=== PATIENT | male | born 2000 | race Caucasian/White ===

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

== ENCOUNTER → 2020-12-24 10:17 | Outpatient (CLI) | payer OTHER, SELFPAY ==
[2020-12-27 08:06] LABS: Calprotectin, Stool 2122 ug/g (0-120)
== END ==
PROVIDERS: PCP Family Medicine; Referring Provider Pediatrics; Visit Provider Pediatrics
DX: K50.819 Crohn's disease of both small and large intestine with unspecified complications (principal); R19.5 Other fecal abnormalities; D84.9 Immunodeficiency, unspecified; D50.9 Iron deficiency anemia, unspecified
CPT/HCPCS: 82274; 83993; 87493; 87506

== ENCOUNTER → 2023-06-13 | Outpatient (CLI) | payer OTHER, SELFPAY ==
[2023-06-13 17:00] LABS: Absolute Lymphocyte Count 1.89 X10^3/uL (0.83-4.51); Absolute Neutrophil Count 6.6 X10^3/uL (2.0-7.7); Basophil# 0.03 X10^3/uL; Basophil% 0.3 % (0-1); Eosinophils% 1.1 % (0-5); Hematocrit 46.6 % (40-54); Hemoglobin 14.2 g/dL (13.0-16.5); Lymphocyte # 1.89 X10^3/ul (0.83-4.51); Lymphocyte % 20.7 % (19-41); Mean Corp Hgb Conc 30.5 g/dL (32-36); Mean Corpuscular Hgb 24.3 pg (27.0-32.0); Mean Corpuscular Volume 79.8 fL (80-94); Mean Platelet Vol. 10.9 fl (6.2-12.0); Monocyte% 5.5 % (0-10); NRBC Flagged by Analyzer 0 % (0-5); Neutrophil # 6.57 X10^3/uL (2.7-7.7); Neutrophil % 72.2 % (47-70); Platelet Count 292 K/mm3 (150-450); RBC Distribution Width CV 16.9 % (11.6-14.6); RBC Distribution Width SD 48.3 fl (35.1-43.9); Red Blood Count 5.84 M/mm3 (4.6-6.2); White Blood Count 9.1 K/mm3 (4.4-11.0)
[2023-06-13 17:07] LABS: Erythrocyte Sedimentation Rate 36 mm/hr (0-20)
[2023-06-13 17:31] LABS: ALB/GLOB Ratio 0.9 RATIO (0.9-2.4); AST(SGOT) 15 U/L (15-37); Alanine Aminotransfer ALT/SGPT 18 U/L (16-61); Albumin, Serum 4.1 g/dL (3.2-5.0); Alkaline Phosphatase 104 U/L (45-117); Amylase 63 U/L (25-115); Anion Gap 5 (5-15); BUN 17 mg/dL (7-18); BUN/Creat Ratio 15.2 RATIO (10-20); CRP 6.67 mg/L (0.0-3.0); Calcium,Total 8.9 mg/dL (8.5-10.1); Chloride 106 mmol/L (98-107); Creatinine, Serum 1.12 mg/dL (0.70-1.30); EST Glomerular Filtration Rate 86 mL/min (>60); Est Glom Filt Rate - Afr Amer 104 mL/min (>60); Globulin 4.7 g/dL (2.2-4.2); Glucose 103 mg/dL (74-106); LDH 172 U/L (87-241); Lipase 32 U/L (13-75); Protein, Total 8.8 g/dL (6.4-8.2); Sodium Level 139 mmol/L (136-145)
--- OUTSIDE RECORDS SUMMARY | 2023-06-13 17:39 | XMS RPT_ITS | CCD ---
Author Name Unknown Address [address] [place] [address] Organization [facility] Care Team Providers Care Finger Buff Sewer Name Role Phone Corrine Patel MD Primary Care Provider [phone] ISHAAN HAYES Attending Unavailable ISHAAN HAYES Referring Unavailable CORRINE PATEL Primary Care Unavailable ISHAAN HAYES Referring Unavailable ISHAAN HAYES Attending Unavailable CORRINE PATEL Primary Care Unavailable ISHAAN HAYES Attending Unavailable ISHAAN HAYES Referring Unavailable CORRINE PATEL Primary Care Unavailable CORRINE PATEL Referring Unavailable ISHAAN HAYES Attending Unavailable CORRINE PATEL Primary Care Unavailable ISHAAN HAYES Attending Unavailable CORRINE PATEL Primary Care Unavailable Medications Current Medications Medication Drug Class(es) Dates Sig (Normalized) Sig (Original) mesalamine 66.7 mg/ml enema (3 sources) Aminosalicylate Start: 07-13-2021 take 60 mL rectal route once daily at bedtime mesalamine (ROWASA) [address] 60 mL (4 g) rectally nightly at bedtime 30 Each 2 07/13/2021 Active triamcinolone acetonide 0.001 mg/mg oral paste (3 sources) Corticosteroid Start: 02-08-2022 triamcinolone acetonide (KENALOG) 0.1 % dental paste Apply to sores once or up to three times a day after meals 5 g 3 02/08/2022 Active Problems Active Problems Problem Classification Problem Date Documented Date Episodic/Chronic Immunity disorders (6 sources) Immunosuppression; Translations: [Immunodeficiency, unspecified] Onset: 09-14-2016 Chronic Noninfectious gastroenteritis (3 sources) Inflammatory bowel disease; Translations: [Noninfective gastroenteritis and colitis, unspecified] Episodic Regional enteritis and ulcerative colitis (18 sources) Crohn's disease of small AND large intestines; Translations: [Crohn's disease of both small and large intestine with unspecified complications] Onset: 04-11-2016 Resolved: 05-03-2021 Chronic Past or Other Problems Problem Classification Problem Date Documented Da te Episodic/Chronic Anal and rectal conditions (3 sources) Perianal abscess; Translations: [Anal abscess] Onset: 11-27-2018 Resolved: 05-03-2021 05-03-2021 Episodic Gastrointestinal hemorrhage (3 sources) Blood-tinged feces; Translations: [Melena] Onset: 11-27-2018 Resolved: 05-03-2021 05-03-2021 Episodic Other gastrointestinal disorders (3 sources) Diarrhea; Translations: [Diarrhea, unspecified] Onset: 03-24-2016 Resolved: 06-07-2016 06-07-2016 Episodic Results Test Name Value Interpretation Reference Range Facil ity Encounters Encounter Date Encounter Type Care Provider Facility Start: 12-27-2022 End: 12-28-2022 [facility] Start: 08-16-2022 End: 08-17-2022 ambulatory [facility] Start: 08-16-2022 End: 08-16-2022 Subsequent hospital visit by physician Ishaan Hayes MD Work Phone: [facility] - [place] Procedures Date Procedure Procedure Detail Performing Clinician Start: 08-16-2022 Basic metabolic 1999 panel - Serum or Plasma Ishaan Hayes MD Work Phone: Start: 08-16-2022 C-reactive protein Ori moe Hayes MD Work Phone: Start: 08-16-2022 Complete blood count without differential Ishaan Hayes MD Work Phone: Start: 08-16-2022 Erythrocyte sediment ation rate Ishaan Hayes MD Work Phone: Start: 08-16-2022 Hepatic function 200 0 panel - Serum or Plasma Ishaan Hayes MD Work Phone: Start: 04-25-2022 Basic metabolic 2000 panel - Serum or Plasma Ishaan Hayes MD Work Phone: Start: 04-25-2022 C-reactive protein Ori moe Hayes MD Work Phone: Start: 04-25-2022 Complete blood count without differential Ishaan Hayes MD Work Phone: Start: 04-25-2022 Erythrocyte sediment ation rate Ishaan Hayes MD Work Phone: Start: 04-25-2022 Hepatic function 200 0 panel - Serum or Plasma Ishaan Hayes MD Work Phone: Start: 12-31-2021 Basic metabolic pane l calcium total Ishaan Hayes MD Work Phone: Start: 12-31-2021 Hepatic function panel Ishaan Hayes MD Work Phone: Plan of Treatment Date Care Activity Detail Author Start: 02-08-2022 End: 02-08-2022 Patient encounter procedure 02/08/2022 Office Visit [place]astroenterology [place] [address] [facility] [place] Start: 02-03-2022 [facility] Start[facility] MenB (1 of 2 - MenB 2-Dose Series Bexsero) MenB (1 of 2 - MenB 2-Dose Series Bexsero) [facility] Start: 2015 MenB (1 of 2 - MenB 2-Dose Series) MenB (1 of 2 - MenB 2-Dose Series) [facility] Start: 12-29-2010 HPV (1 - Male 2-dose series) HPV (1 - Male 2-dose series) [facility] Start: 12-29-2006 Tetanus Diphtheria and Pertussis Vaccines (1 - Tdap) Tetanus Diphtheria and Pertussis Vaccines (1 - Tdap) [facility] Start: 12-29-2000 MMR (1 of 1 - Standard series) MMR (1 of 1 - Standard series) [facility] Start: 12-29-2000 Varicella (1 of 2 - 2-dose childhood series) Varicella (1 of 2 - 2-dose childhood series) [facility] Start: 07-01-2000 COVID-19 (#1) COVID-19 (#1) [facility] Start: 1999 Hepatitis B (1 of 3 - 3-dose series) Hepatitis B (1 of 3 - 3-dose series) [facility] End: 12-31-2021 Hepatitis Acute Panel [facility] Work Phone: Immunizations Immunization Date Immunization Notes Care Provider Fa cility 03-26-2019 influenza, injectabl e, quadrivalent, preservative free Ishaan Hayes MD Work Phone: [facility] 06-07-2016 influenza, injectabl e, quadrivalent, preservative free Ishaan Hayes MD Work Phone: [facility] Payers Date Payer Category Payer Unknown [employer] [facility] M[facility] SUPER[employer] PPO [id number] 2021-Present [address] [place] [address] [id number] 1999 Unknown [id number] 1999 Unknown [id number] 1999 Unknown [id number] 1999 Unknown [id number] 1999 Unknown [id number] Unknown [id number] Social History Date Type Detail Facility Start: 02-15-2019 End: 02-08-2022 Tobacco smoking status NHIS Never smoked tobacco [facility] Work Phone: Start: 02-15-2019 End: 02-08-2022 Tobacco use and exposure Smokeless tobacco non-user [facility] Start: 05-10-2021 End: 02-08-2022 Alcohol intake Current non-drinker of alcohol (finding) [facility] Start: 11-01-2017 End: 02-08-2022 History SDOH Alcohol Comment Pt denies use [facility] Start: 1999 Sex Assigned At Not on file A [facility] Start: 12-21-2021 End: 12-31-2021 Exposure to SARS-CoV-2 (event) Not sure [facility] Start: 02-08-2022 History of Social function [facility] Start: 02-08-2022 Tobacco use panel [facility] Evaluation note Note Date & Type Note Facility documented in this encounter [facility] Evaluation note Note Date & Type Note Facility documented in this encounter [facility] Evaluation note Note Date & Type Note Facility documented in this encounter [facility] Reason for referral (narrative) Referral (Routine) - Open Note Date & Type Note Facility Referral ID Status Reason Start Date Expiration Date Visits Re quested Visits Authorized [id number] Open 04/22/2022 04/22/2023 1 1 [facility] Reason for visit Narrative Referral (Routine) - Open Note Date & Type Note Facility Referral ID Status Reason Start Date Expiration Date Visits Re quested Visits Authorized [id number] Open 04/22/2022 04/22/2023 1 1 [facility] Reason for visit Narrative Referral (Routine) - Open Note Date & Type Note Facility Referral ID Status Reason Start Date Expiration Date Visits Re quested Visits Authorized [id number] Open 07/22/2022 07/22/2023 1 1 [facility] Summary Purpose Family History No Family History Records Found Advance Directives No Advanced Directives Records Found Additional Source Comments Care Teams (unrecognized sec tion and content) Finger Buff Sewer Relationship Specialty Start Date End Date Corrine Patel MD [address] [place] [address] PCP - General Family Medicine 03/15/16 Finger Buff Sewer Relationship Specialty Start Date End Date Corrine Patel MD [address] [place] [address] PCP - General Family Medicine 03/15/16 (unrecognized sect ion and content) No Status Records Found INFORMATION SOURCE (unrecogn ized section and content) FOR RECORDS PERTAINING TO PATIENTS WHO ARE OR HAVE BEEN ENROLLED IN A CHEMICAL DEPENDENCY/SUBSTANCEABUSE PROGRAM, SOME INFORMATION MAY BE OMITTED. This clinical summary was aggregated from multiple sources. Caution should be exercised in using it in the provision of clinical care. This summary normalizes information from multiple sources, and as a consequence, information in this document may materially change the coding, format and clinical context of patient data. In addition, data may be omitted in some cases. CLINICAL DECISIONS SHOULD BE BASED ON THE PRIMARY CLINICAL RECORDS. [employer] provides no warranty or guarantee of the accuracy or completeness of information in this document.
[2023-06-17 16:09] LABS: Anti-Mitochondrial AB <20.0 Units (0.0-20.0); Clam <0.10 kU/L (Class 0); Codfish <0.10 kU/L (Class 0); Corn <0.10 kU/L (Class 0); Egg, White <0.10 kU/L (Class 0); Milk (Cow) <0.10 kU/L (Class 0); Peanut <0.10 kU/L (Class 0); SCALLOP <0.10 kU/L (Class 0); SESAME SEED <0.10 kU/L (Class 0); Shrimp <0.10 kU/L (Class 0); Soybean <0.10 kU/L (Class 0); Walnut, (Food) <0.10 kU/L (Class 0); Wheat <0.10 kU/L (Class 0)
== END | disposition home or self-care (01) ==
PROVIDERS: PCP Family Medicine; Visit Provider Internal Medicine Gastroenterology
DX: K50.90 Crohn's disease, unspecified, without complications (principal)
CPT/HCPCS: 36415; 80053; 82150; 82164; 82784; 82785; 83516; 83615; 83690; 84165; 85025; 85652; 86003; 86140; 86255; 86256; 86334

== ENCOUNTER → 2023-06-16 | Outpatient (CLI) | payer OTHER, SELFPAY ==
--- OUTSIDE RECORDS SUMMARY | 2023-06-16 16:42 | XMS RPT_ITS | CCD ---
Author Name Unknown Address [address] [place] [address] Organization [facility] Care Team Providers Care Furnace Fitter Name Role Phone Corrine Patel MD Primary Care Provider [phone] ISHAAN HAYES Attending Unavailable ISHAAN HAYES Referring [...] Provider Facility Start: 12-27-2022 End: 12-28-2022 [facility] Start: 08-16-2022 End: 08-17-2022 ambulatory [facility] Start: 08-16-2022 End: 08-16-2022 Subsequent hospital visit by physician Ishaan Hayes MD Work Phone: [facility] - [place] Procedures Date Procedure Procedure Detail Performing Clinician [...] 02/08/2022 Office Visit Gastroenterology [place] [address] [facility] - [place] Start: 02-03-2022 [facility] Start: [facility] MenB (1 of 2 - MenB 2-Dose Series Bexsero) MenB (1 of 2 - MenB 2-Dose Series Bexsero) [facility] Start: 2015 MenB (1 of 2 - MenB 2-Dose Series) MenB (1 of 2 - MenB 2-Dose Series) [facility] Start: 12-29-2010 HPV (1 - Male 2-dose series) HPV (1 - Male 2-dose series) [facility] Start: 12-29-2006 Tetanus Diphtheria and Pertussis Vaccines (1 - Tdap) Tetanus Diphtheria and Pertussis Vaccines (1 - Tdap) [facility] Start: 12-29-2000 MMR (1 of 1 - Standard series) MMR (1 of 1 - Standard series) [facility] Start: 12-29-2000 Varicella (1 of 2 - 2-dose childhood series) Varicella (1 of 2 - 2-dose childhood series) [facility] Start: 07-01-2000 COVID-19 (#1) COVID-19 (#1) [facility] Start: 1999 Hepatitis B (1 of 3 - 3-dose series) Hepatitis B (1 of 3 - 3-dose series) [facility] End: 12-31-2021 Hepatitis Acute Panel [facility] Work Phone: Immunizations Immunization Date Immunization Notes Care Provider Fa cility 03-26-2019 influenza, injectabl e, quadrivalent, preservative free Ishaan Hayes MD Work Phone: [facility] 06-07-2016 influenza, injectabl e, quadrivalent, preservative free Ishaan Hayes MD Work Phone: [facility] Payers Date Payer Category Payer Unknown [employer] [facility] M[employer] SU[employer]MED PPO [id number] 2021-Present [address] [place] [address] [id number] 1999 Unknown [id number] 1999 Unknown [id number] 1999 Unknown [id number] 1999 Unknown [id number] 1999 Unknown [id number] Unknown [id number] Social History Date Type Detail Facility Start: 02-15-2019 End: 02-08-2022 Tobacco smoking status NHIS Never smoked tobacco [facility] Work Phone: Start: 02-15-2019 End: 02-08-2022 Tobacco use and exposure Smokeless tobacco non-user [facility] Start: 05-10-2021 End: 02-08-2022 Alcohol intake Current non-drinker of alcohol (finding) [facility] Start: 11-01-2017 End: 02-08-2022 History SDOH Alcohol Comment Pt denies use [facility] Start: 1999 Sex Assigned At Not on file A [facility] Start: 12-21-2021 End: 12-31-2021 Exposure to SARS-CoV-2 (event) Not sure [facility] Start: 02-08-2022 History of Social function [facility] Start: 02-08-2022 Tobacco use panel [facility] Evaluation note Note Date & Type Note Facility documented in this encounter [facility] Evaluation note Note Date & Type Note Facility documented in this encounter [facility] Evaluation note Note Date & Type Note Facility documented in this encounter [facility] Reason for referral (narrative) Referral (Routine) - Open Note Date & Type Note Facility Referral ID Status Reason Start Date Expiration Date Visits Re quested Visits Authorized [id number] Open 04/22/2022 04/22/2023 1 1 [facility] Reason for visit Narrative Referral (Routine) - Open Note Date & Type Note Facility Referral ID Status Reason Start Date Expiration Date Visits Re quested Visits Authorized [id number] Open 04/22/2022 04/22/2023 1 1 [facility] Reason for visit Narrative Referral (Routine) - Open Note Date & Type Note Facility Referral ID Status Reason Start Date Expiration Date Visits Re quested Visits Authorized [id number] Open 07/22/2022 07/22/2023 1 1 [facility] Summary Purpose Family History No Family History Records Found Advance Directives No Advanced Directives Records Found Additional Source Comments Care Teams (unrecognized sec tion and content) Furnace Fitter Relationship Specialty Start Date End Date Corrine Patel MD [address] [place] [address] PCP - General Family Medicine 03/15/16 Furnace Fitter Relationship Specialty Start Date End Date Corrine Patel MD [address] [place] [address] PCP - General Family Medicine 03/15/16 (unrecognized [...] BE BASED ON THE PRIMARY CLINICAL RECORDS. [employer] provides no warranty or guarantee of the accuracy or completeness of information in this document.
[2023-06-21 01:07] LABS: Calprotectin, Stool 622 ug/g (0-120); Fats, Neutral Normal (.); Fats, Total Increased (.)
[2023-06-21 14:08] LABS: Pancreatic Elastase, Fecal 299 (>200)
== END | disposition home or self-care (01) ==
PROVIDERS: PCP Family Medicine; Referring Provider Internal Medicine Gastroenterology; Visit Provider Internal Medicine Gastroenterology
DX: K50.90 Crohn's disease, unspecified, without complications (principal)
CPT/HCPCS: 82653; 82705; 83630; 83993; 87177; 87209; 87329; 87506